=== PATIENT | female | born 1985 | race African-American/Black ===

== ENCOUNTER 2017-05-13 10:25 | Emergency (ER) | payer MEDICAID ==
[2017-05-13 11:07] LABS: BASOPHILS 0.4 % (0-2); EOSINOPHILS 0.5 % (0-7); HEMOGLOBIN 15.5 g/dL (12-16); IMMATURE GRANULOCYTES 0.1 % (0-5); LYMPHOCYTES 16.8 % (15-50); MCH 27.9 pg (26.0-34.0); MCV 84.7 fL (80.0-100.0); MEAN PLATELET VOLUME 10.2 fL (7.4-10.4); MONOCYTES 7.3 % (2-11); NEUTROPHILS 74.9 % (40-80); PLATELET COUNT 352 10x3/uL (130-400); RBC 5.55 10x6/uL (4.00-5.40); RDW 13.1 % (11.5-14.5); WBC 7.5 10x3/uL (4.8-10.8)
[2017-05-13 11:08] LABS: APPEARANCE CLEAR (CLEAR); BILIRUBIN NEGATIVE (NEGATIVE); COLOR YELLOW (YELLOW); GLUCOSE NEGATIVE (NEGATIVE); KETONE NEGATIVE (NEGATIVE); NITRITE NEGATIVE (NEGATIVE); PROTEIN NEGATIVE (NEGATIVE); UROBILINOGEN NORMAL (NORMAL)
[2017-05-13 11:09] LABS: HCG SERUM NEGATIVE (NEGATIVE)
[2017-05-13 11:10] LABS: BACTERIA MODERATE /hpf (NONE SEEN); EPITHELIAL CELLS 0-5 /hpf (0-5); MUCUS <1+ /lpf (NONE SEEN); RED CELLS - URINE 0-5 /hpf (0-5); WHITE CELLS - URINE 0-5 /hpf (0-5)
== END 2017-05-13 12:47 | disposition home or self-care (01) ==
LOC: D.ER 10:25
PROVIDERS: Emergency Medicine
DX: R10.2 Pelvic and perineal pain (principal); N76.0 Acute vaginitis

== ENCOUNTER 2017-05-14 12:30 | Emergency (ER) | payer MEDICAID ==
[2017-05-14 14:03] LABS: BASOPHILS 0.2 % (0-2); EOSINOPHILS 0.3 % (0-7); HEMATOCRIT 43.6 % (36.0-48.0); HEMOGLOBIN 14.4 g/dL (12-16); IMMATURE GRANULOCYTES 0.3 % (0-5); MCH 28.3 pg (26.0-34.0); MCV 85.7 fL (80.0-100.0); MEAN PLATELET VOLUME 9.9 fL (7.4-10.4); MONOCYTES 9.2 % (2-11); PLATELET COUNT 326 10x3/uL (130-400); RBC 5.09 10x6/uL (4.00-5.40); RDW 13.2 % (11.5-14.5)
[2017-05-14 14:04] LABS: WBC 9.5 10x3/uL (4.8-10.8)
[2017-05-14 14:20] LABS: HCG SERUM NEGATIVE (NEGATIVE)
[2017-05-14 14:52] LABS: ALBUMIN 3.6 g/dL (3.4-5.0); ANION GAP 12.2 mmol/L (8-16); BILIRUBIN - TOTAL 0.2 mg/dL (0.2-1.3); CALCIUM 9.1 mg/dL (8.5-10.1); CARBON DIOXIDE 28.2 mmol/L (21.0-32.0); POTASSIUM - SERUM 4.4 mmol/L (3.5-5.1)
== END 2017-05-14 18:24 | disposition home or self-care (01) ==
LOC: D.ER 12:30
PROVIDERS: Nurse Practitioner Family
DX: R10.2 Pelvic and perineal pain (principal)

== ENCOUNTER 2018-01-21 02:38 | Emergency (ER) | payer MEDICAID ==
[~2018-01-21] VITALS: Ht 165.1 cm; Wt 77.3 kg
[2018-01-21 02:40] VITALS: Ht 165.1 cm; Wt 77.3 kg
[2018-01-21 03:56] VITALS: BP 135/72
== END 2018-01-21 03:57 | disposition home or self-care (01) ==
LOC: D.ER 02:38
DX: G43.909 Migraine, unspecified, not intractable, without status migrainosus (principal); R42 Dizziness and giddiness

== ENCOUNTER 2018-01-28 12:09 | Emergency (ER) | payer MEDICAID ==
[~2018-01-28] VITALS: Ht 165.1 cm; Wt 72.7 kg
[2018-01-28 12:13] VITALS: Ht 165.1 cm; Wt 72.7 kg
[2018-01-28 14:07] VITALS: BP 122/78
== END 2018-01-28 14:08 | disposition home or self-care (01) ==
LOC: D.ER 12:09
DX: G43.909 Migraine, unspecified, not intractable, without status migrainosus (principal)

== ENCOUNTER 2018-02-19 10:22 | Emergency (ER) | payer MEDICAID ==
[~2018-02-19] VITALS: Ht 165.1 cm; Wt 77.3 kg
[2018-02-19 10:24] VITALS: Ht 165.1 cm; Wt 77.3 kg
[2018-02-19] MEDS ORDERED: COMPAZINE5 MG PO (12:00)
[2018-02-19] MEDS ORDERED: VOLTAREN75 MG PO (12:00)
[2018-02-19 12:15] VITALS: BP 19/067
== END 2018-02-19 12:16 | disposition home or self-care (01) ==
LOC: D.ER 10:22
DX: G43.709 Chronic migraine without aura, not intractable, without status migrainosus (principal); R11.0 Nausea

== ENCOUNTER 2018-07-10 12:50 | Emergency (ER) | payer MEDICAID ==
[~2018-07-10] VITALS: Ht 165.1 cm; Wt 75.0 kg
[~2018-07-10 12:50] MED LIST: COMPAZINE5 MG PO; VOLTAREN75 MG PO
[2018-07-10 13:00] VITALS: Ht 165.1 cm; Wt 75.0 kg
[2018-07-10 17:11] LABS: BASOPHILS 0.2 % (0-2); EOSINOPHILS 0.4 % (0-7); HEMATOCRIT 41.2 % (36.0-48.0); IMMATURE GRANULOCYTES 0.2 % (0-5); LYMPHOCYTES 8.3 % (15-50); MCH 27.8 pg (26.0-34.0); MCV 81.9 fL (80.0-100.0); MEAN PLATELET VOLUME 9.7 fL (7.4-10.4); MONOCYTES 1.2 % (2-11); NEUTROPHILS 89.7 % (40-80); PLATELET COUNT 366 10x3/uL (130-400); RBC 5.03 10x6/uL (4.00-5.40); WBC 11.3 10x3/uL (4.8-10.8)
[2018-07-10 17:34] LABS: ALBUMIN 3.6 g/dL (3.4-5.0); ALKALINE PHOSPHATASE 52 U/L (46-116); ALT (SGPT) 27 U/L (10-68); BILIRUBIN - TOTAL 0.35 mg/dL (0.2-1.3); CALC OSMOLALITY 274 mosm/kg (275-300); CALCIUM 8.5 mg/dL (8.5-10.1); CARBON DIOXIDE 25.6 mmol/L (21.0-32.0); CHLORIDE - SERUM 104 mmol/L (98-107); CREATININE - SERUM 0.9 mg/dL (0.6-1.3); GLUCOSE 98 mg/dL (74-106); POTASSIUM - SERUM 3.9 mmol/L (3.5-5.1); PROTEIN - SERUM 7.7 g/dL (6.4-8.2); SODIUM 138 mmol/L (136-145); UREA NITROGEN 9 mg/dL (7-18); eGFR NON AFRICAN AMERICAN 77 mL/min (90-120)
[2018-07-10 17:52] LABS: AMYLASE - SERUM 87 U/L (25-115); CKMB 0.8 U/L (0.0-3.6); CREATINE KINASE 144 UL (21-215); LIPASE 141 U/L (73-393); TROPONIN-I < 0.017 ng/mL (0.000-0.060)
[2018-07-10] MEDS ORDERED: BENTYL 20 MG TA20 MG PO (18:33)
[2018-07-10] MEDS ORDERED: VOLTAREN75 MG PO (18:33)
[2018-07-10] MEDS ORDERED: ZANAFLEX4 MG PO (18:33)
[2018-07-10] MEDS ORDERED: OMEPRAZOLE40 MG PO (18:33)
[2018-07-10 19:33] VITALS: BP 115/65
== END 2018-07-10 19:33 | disposition home or self-care (01) ==
LOC: D.ER 12:50
PROVIDERS: Emergency Medicine
DX: K29.70 Gastritis, unspecified, without bleeding (principal); M25.512 Pain in left shoulder

== ENCOUNTER 2018-12-16 19:48 | Emergency (ER) | payer MEDICAID ==
[~2018-12-16] VITALS: Ht 165.1 cm; Wt 85.3 kg
[~2018-12-16 19:48] MED LIST changes: +BENTYL 20 MG TA20 MG PO; +OMEPRAZOLE40 MG PO; +ZANAFLEX4 MG PO
[2018-12-16 20:01] VITALS: BP 124/70; Ht 165.1 cm; Wt 85.3 kg
[2018-12-16 20:28] LABS: BASOPHILS 0.4 % (0-2); EOSINOPHILS 6.9 % (0-7); HEMATOCRIT 37.5 % (36.0-48.0); HEMOGLOBIN 12.5 g/dL (12-16); IMMATURE GRANULOCYTES 0.3 % (0-5); LYMPHOCYTES 22.9 % (15-50); MCHC 33.3 g/dL (31.0-37.0); MEAN PLATELET VOLUME 9.6 fL (7.4-10.4); NEUTROPHILS 60.5 % (40-80); PLATELET COUNT 385 10x3/uL (130-400); RBC 4.63 10x6/uL (4.00-5.40); RDW 13.3 % (11.5-14.5)
[2018-12-16 20:53] LABS: ALBUMIN 2.9 g/dL (3.4-5.0); ALKALINE PHOSPHATASE 49 U/L (46-116); ALT (SGPT) 14 U/L (10-68); BILIRUBIN - TOTAL 0.17 mg/dL (0.2-1.3); CALC OSMOLALITY 280 mosm/kg (275-300); CALCIUM 8.3 mg/dL (8.5-10.1); CARBON DIOXIDE 27.5 mmol/L (21.0-32.0); CHLORIDE - SERUM 107 mmol/L (98-107); CREATININE - SERUM 0.8 mg/dL (0.6-1.3); GLUCOSE 92 mg/dL (74-106); POTASSIUM - SERUM 3.6 mmol/L (3.5-5.1); PROTEIN - SERUM 6.3 g/dL (6.4-8.2); SODIUM 141 mmol/L (136-145); UREA NITROGEN 12 mg/dL (7-18); eGFR NON AFRICAN AMERICAN 88 mL/min (90-120)
== END 2018-12-16 21:56 | disposition left against medical advice (07) ==
LOC: D.ER 19:48
PROVIDERS: Emergency Medicine
DX: N99.89 Other postprocedural complications and disorders of genitourinary system (principal)